=== PATIENT | male | born 1960 | race Asian ===

== ENCOUNTER 2019-02-08 23:48 | Emergency (ER) | payer MEDICARE ==
[~2019-02-08] VITALS: Ht 172.7 cm; Wt 145.1 kg
[2019-02-09 00:18] LABS: Basophils # (auto) 0 uL; Basophils % (auto) 0.3 % (0.0-2.0); Eosinophils # (auto) 0 uL; Eosinophils % (auto) 0.4 % (0.0-7.0); Hematocrit 54.9 % (41.0-53.0); Hemoglobin 17.9 g/dL (13.5-17.5); Lymphocytes # (auto) 0.4 uL; Lymphocytes % (auto) 4.1 % (10.0-50.0); Mean Corpuscular Hemoglobin 28.9 pg (28.0-32.0); Mean Corpuscular Hgb Conc. 32.6 g/dL (32.0-36.0); Mean Corpuscular Volume 88.6 fL (80.0-100.0); Monocytes # (auto) 0.2 uL; Neutrophils # (auto) 8.8 uL; Neutrophils % (auto) 93.2 % (37.0-80.0); Platelet Count (auto) 247 10^3/uL (140-450); Red Cell Distribution Width 14.3 % (11.8-14.3); White Blood Cell 9.4 10^3/uL (4.4-10.8)
[2019-02-09 00:30] LABS: Chloride 102 mmol/L (98-107); Potassium 3.7 mmol/L (3.5-5.1); Sodium 138 mmol/L (136-145)
[2019-02-09 00:32] LABS: Albumin 3.7 g/dL (3.4-5.0); Anion Gap 9 (5-15); Blood Urea Nitrogen 38 mg/dL (7-18); Calcium 8.5 mg/dL (8.5-10.1); Carbon Dioxide 27 mmol/L (21-32); Glucose 287 mg/dL (74-106)
[2019-02-09 00:35] LABS: Alanine Aminotransferase 34 U/L (16-61); Aspartate Aminotransferase 33 U/L (15-37); BUN/Creatinine Ratio 15.6; GFR African American 35 mL/min; GFR Non-African American 29 mL/min
[2019-02-09 00:38] LABS: Alkaline Phosphatase 86 U/L (45-117); Bilirubin, Total 0.6 mg/dL (0.2-1.0); Total Protein 7.1 g/dL (6.4-8.2)
[2019-02-09] MEDS ORDERED: FAMOTIDINE (10MG/ML) 2ML VL IV ONE (01:15)
[2019-02-09] MEDS ORDERED: MORPHINE SULFATE 4 MG/ML SYR/VIAL IV ONE (01:15)
[2019-02-09] MEDS ORDERED: ONDANSETRON HCL 4 MG/2 ML VIAL IV ONE (01:15)
[2019-02-09 01:38] LABS: Amylase 71 U/L (25-115); Lipase 194 U/L (73-393)
[2019-02-09 01:47] LABS: Partial Thromboplastin Time 30.9 sec (23.78-33.04); Prothrombin Time 10.7 sec (9.27-12.13)
[2019-02-09 02:05] LABS: Alcohol, Urine < 3.0 mg/dL (0-5); Amphetamine Screen, Urine NEGATIVE (NEGATIVE); Barbiturate Scree,Urine NEGATIVE (NEGATIVE); Benzodiazephine Screen, Urine NEGATIVE (NEGATIVE); Cannabinoid Screen, Urine NEGATIVE (NEGATIVE); Cocaine Screen, Urine NEGATIVE (NEGATIVE); Opiate Scree,Urine NEGATIVE (NEGATIVE); Phencyclidine Screen, Urine NEGATIVE (NEGATIVE)
[2019-02-09 03:10] LABS: Urine Bacteria NONE SEEN /hpf (None Seen); Urine Blood Negative /uL (Negative); Urine Specific Gravity 1.016 (1.001-1.035); Urine WBC <1 /hpf (0 - 3)
[2019-02-09] MEDS ORDERED: KETOROLAC TROMETH 30 MG/ML 1ML VIAL IV ONE (03:15)
[2019-02-09 06:16] VITALS: BP 96/61
== END 2019-02-09 06:20 | disposition home or self-care (01) ==
LOC: ER 23:53
DX: K80.20 Calculus of gallbladder without cholecystitis without obstruction (principal); K57.30 Diverticulosis of large intestine without perforation or abscess without bleeding; T78.40XA Allergy, unspecified, initial encounter; E11.9 Type 2 diabetes mellitus without complications; Z90.89 Acquired absence of other organs; Z88.1 Allergy status to other antibiotic agents; X58.XXXA Exposure to other specified factors, initial encounter
CPT/HCPCS: 36415; 71046; 74176; 80053; 80307; 81001; 82150; 83690; 83880; 84484; 85025; 85610; 85730; 93005; 96374; 96375; 99284; J1885; J2270; J2405; J3490

== ENCOUNTER 2022-08-23 20:53 | Emergency (ER) | payer MEDICARE | END 2022-08-23 21:00 | disposition left against medical advice (07) | LOC: EDBD 20:53 → ER 20:59 | DX: R06.02 Shortness of breath (principal); Z53.21 Procedure and treatment not carried out due to patient leaving prior to being seen by health care provider ==